=== PATIENT | male | born 1975 | race Caucasian/White ===

== ENCOUNTER 2017-12-27 07:48 | Inpatient (IN) | payer MEDICAID ==
[2017-12-27 08:40] LABS: ADD MAN DIFF? NO
[2017-12-27 08:43] LABS: ADD UMIC NO; BASOPHIL # 0.1 10^3/ul (0.0-0.1); BASOPHILS % 0.9 % (0.0-2.0); EOSINOPHILS # 0.1 10^3/ul (0.0-0.5); EOSINOPHILS % 0.9 % (0.0-7.0); HEMATOCRIT 46.2 % (42.0-52.0); HEMOGLOBIN 16.1 g/dl (14.0-18.0); LYMPHOCYTES # 1.5 10^3/ul (0.8-2.9); LYMPHOCYTES % 27.2 % (15.0-51.0); MEAN CORPUSCULAR HEMOGLOBIN 31.3 pg (29.0-33.0); MEAN CORPUSCULAR HGB CONC 34.8 g/dl (32.0-37.0); MEAN CORPUSCULAR VOLUME 89.7 fl (82.0-101.0); MEAN PLATELET VOLUME 12.9 fl (7.4-10.4); MONOCYTE # 0.4 10^3/ul (0.3-0.9); MONOCYTES % 7.5 % (0.0-11.0); NEUTROPHIL # 3.5 10^3/ul (1.6-7.5); NEUTROPHILS % 63.3 % (39.0-77.0); PLATELET COUNT 184 10^3/UL (140-415); RED BLOOD COUNT 5.15 10^6/ul (4.70-6.10); RED CELL DISTRIBUTION WIDTH 11.5 % (11.5-14.5); UR ASCORBIC ACID NEGATIVE (NEGATIVE); UR BILIRUBIN (Dip) NEGATIVE (NEGATIVE); UR BLOOD (Dip) NEGATIVE (NEGATIVE); UR CLARITY CLEAR (CLEAR); UR COLOR COLORLESS (YELLOW); UR GLUCOSE (Dip) 3+ mg/dL (NEGATIVE); UR KETONES (Dip) TRACE mg/dL (NEGATIVE); UR LEUKOCYTE ESTERASE (Dip) NEGATIVE Leu/ul (NEGATIVE); UR NITRITE (Dip) NEGATIVE (NEGATIVE); UR SPECIFIC GRAVITY (Dip) 1.027 (1.003-1.030); UR TOTAL PROTEIN (Dip) NEGATIVE (NEGATIVE); UR UROBILINOGEN (Dip) NEGATIVE (NEGATIVE)
[2017-12-27 08:43] LABS: WHITE BLOOD COUNT 5.6 10^3/ul (4.8-10.8)
[2017-12-27] MEDS: SOD CHLORIDE 0.9% 1,000 ML IV ×3 (08:48→14:27)
[2017-12-27 08:58] LABS: AADO2 Arterial 34.6 mmHg (7.0-24.0); Allen Test ACCEPTAB; Arterial Base Excess -3.7 mmol/L (-3.0-3); Arterial Blood Gas Oxygen Sat 93.4 mmHG (95.0-98.0); Arterial COHb 0.9 % (0.0-3.0); Arterial Fraction of Oxyhgb 92.2 % (93.0-99.0); Arterial MetHb 0.4 % (0.0-1.5); Arterial Total Hemglobin 15.9 g/dl (12.0-18.0); Arterial pCO2 37.2 mmhg (35-45); MODE ROOM AIR; Site Right Radial
[2017-12-27 09:08] LABS: ALANINE AMINOTRANSFERASE 70 IU/L (13-69); ALBUMIN 4.2 g/dl (3.3-4.9); ALKALINE PHOSPHATASE 209 IU/L (42-121); ANION GAP 15 (8-16); ASPARTATE AMINO TRANSFERASE 65 IU/L (15-46); BILIRUBIN,INDIRECT 0.6 mg/dl (0-1.1); BILIRUBIN,TOTAL 0.6 mg/dl (0.2-1.3); BLOOD UREA NITROGEN 16 mg/dl (7-20); CALCIUM 9.5 mg/dl (8.4-10.2); CARBON DIOXIDE 27 mmol/L (21-31); CHLORIDE 97 mmol/L (97-110); CREATININE 0.72 mg/dl (0.61-1.24); LIPASE 134 U/L (23-300); SODIUM 134 mmol/L (135-144)
[2017-12-27 09:18] LABS: GLUCOSE 802 mg/dl (70-220)
[2017-12-27 09:28] LABS: HEMOGLOBIN A1C 10.4 % (0-5.9)
[2017-12-27 09:29] LABS: AMPHETAMINE/METHAMPHETAMINE Negative (NEGATIVE); BARBITURATES Negative (NEGATIVE); BENZODIAZEPINES Negative (NEGATIVE); CANNABINOIDS Negative (NEGATIVE); COCAINE Negative (NEGATIVE); OPIATES Negative (NEGATIVE); TROPONIN-I < 0.012 ng/ml (0.00-0.12)
[2017-12-27] MEDS: INSULIN LISPRO 100 UNIT/ML VIAL SC (10:18)
[2017-12-27] MEDS ORDERED: ACETAMINOPHEN 325 MG TAB PO (12:00)
[2017-12-27] MEDS ORDERED: NACL 0.9% 3 ML SYG IV (12:00)
[2017-12-27] MEDS ORDERED: ONDANSETRON 4 MG INJ IV (12:00)
[2017-12-27] MEDS ORDERED: DOCUSATE SODIUM 100 MG CAP PO (12:00)
[2017-12-27] MEDS ORDERED: GLUCOSE GEL 15 GRAM TUBE BUCCAL (12:30)
[2017-12-27] MEDS ORDERED: GLUCOSE GEL 15 GRAM TUBE PO ×2 (12:30)
[2017-12-27] MEDS: INSULIN ASPART [NOVOLOG] 3 ML PEN SC ×4 (12:30→22:23)
[2017-12-27] MEDS ORDERED: GLUCAGON 1 MG INJ IM (12:30)
[2017-12-27] MEDS ORDERED: DEXTROSE 50% 50 ML SYRINGE IV ×2 (12:30)
[2017-12-27] MEDS: LISINOPRIL 5 MG TAB PO (12:31)
[2017-12-27 13:14] LABS: CHOL/HDL RATIO 5.3 RATIO; HDL CHOLESTEROL 32 mg/dl (27-67)
[2017-12-27 13:14] LABS: CHOLESTEROL 171 mg/dl (100-200)
[2017-12-27 13:23] LABS: TRIGLYCERIDES 590 mg/dl (0-149)
[2017-12-27] MEDS: HYPOGLYCEMIA PROTOCOL when Glucose is <70 mg/dL or symptomatic <90 mg/dL. XX (15:25)
[2017-12-27] MEDS: ATORVASTATIN 20 MG TAB PO (22:03)
[2017-12-27] MEDS: INSULIN GLARGINE [LANtus] 3 ML PEN SC (22:23)
[2017-12-28] MEDS: SOD CHLORIDE 0.9% 1,000 ML IV ×3 (03:45→17:13)
[2017-12-28] MEDS: INSULIN ASPART [NOVOLOG] 3 ML PEN SC ×7 (07:58→20:57)
[2017-12-28 08:33] LABS: ADD MAN DIFF? NO
[2017-12-28 08:37] LABS: BASOPHILS % 0.7 % (0.0-2.0); EOSINOPHILS # 0.1 10^3/ul (0.0-0.5); EOSINOPHILS % 1.4 % (0.0-7.0); HEMATOCRIT 44.8 % (42.0-52.0); HEMOGLOBIN 15.5 g/dl (14.0-18.0); LYMPHOCYTES # 1.7 10^3/ul (0.8-2.9); MEAN CORPUSCULAR HEMOGLOBIN 31.4 pg (29.0-33.0); MEAN CORPUSCULAR HGB CONC 34.6 g/dl (32.0-37.0); MEAN CORPUSCULAR VOLUME 90.7 fl (82.0-101.0); MEAN PLATELET VOLUME 12.8 fl (7.4-10.4); MONOCYTE # 0.4 10^3/ul (0.3-0.9); MONOCYTES % 6.8 % (0.0-11.0); NEUTROPHIL # 3.4 10^3/ul (1.6-7.5); NEUTROPHILS % 60.9 % (39.0-77.0); PLATELET COUNT 188 10^3/UL (140-415); RED BLOOD COUNT 4.94 10^6/ul (4.70-6.10); RED CELL DISTRIBUTION WIDTH 12.1 % (11.5-14.5)
[2017-12-28 08:37] LABS: WHITE BLOOD COUNT 5.6 10^3/ul (4.8-10.8)
[2017-12-28] MEDS: LISINOPRIL 5 MG TAB PO (08:45)
[2017-12-28] MEDS: ENOXAPARIN 40 MG/0.4 ML SYG SC (08:45)
[2017-12-28 09:05] LABS: ANION GAP 15 (8-16); BLOOD UREA NITROGEN 11 mg/dl (7-20); CALCIUM 8.7 mg/dl (8.4-10.2); CARBON DIOXIDE 24 mmol/L (21-31); CHLORIDE 106 mmol/L (97-110); GLUCOSE 278 mg/dl (70-220); MAGNESIUM 1.9 mg/dl (1.7-2.5); PHOSPHORUS 2.6 mg/dl (2.5-4.9); POTASSIUM 4.1 mmol/L (3.5-5.1); SODIUM 141 mmol/L (135-144)
[2017-12-28] MEDS: ATORVASTATIN 20 MG TAB PO (20:53)
[2017-12-28] MEDS: INSULIN GLARGINE [LANtus] 3 ML PEN SC (20:57)
[2017-12-29 07:22] LABS: ADD MAN DIFF? NO
[2017-12-29 07:27] LABS: BASOPHILS % 0.7 % (0.0-2.0); EOSINOPHILS # 0.1 10^3/ul (0.0-0.5); EOSINOPHILS % 1.8 % (0.0-7.0); HEMATOCRIT 46.1 % (42.0-52.0); HEMOGLOBIN 15.9 g/dl (14.0-18.0); LYMPHOCYTES # 1.8 10^3/ul (0.8-2.9); LYMPHOCYTES % 32.7 % (15.0-51.0); MEAN CORPUSCULAR HEMOGLOBIN 31.5 pg (29.0-33.0); MEAN CORPUSCULAR HGB CONC 34.5 g/dl (32.0-37.0); MEAN CORPUSCULAR VOLUME 91.3 fl (82.0-101.0); MEAN PLATELET VOLUME 12.7 fl (7.4-10.4); MONOCYTE # 0.5 10^3/ul (0.3-0.9); MONOCYTES % 9.7 % (0.0-11.0); NEUTROPHILS % 54.7 % (39.0-77.0); PLATELET COUNT 184 10^3/UL (140-415); RED BLOOD COUNT 5.05 10^6/ul (4.70-6.10); RED CELL DISTRIBUTION WIDTH 11.8 % (11.5-14.5)
[2017-12-29 07:27] LABS: WHITE BLOOD COUNT 5.5 10^3/ul (4.8-10.8)
[2017-12-29] MEDS: SOD CHLORIDE 0.9% 1,000 ML IV ×2 (07:39→07:54)
[2017-12-29] MEDS: INSULIN ASPART [NOVOLOG] 3 ML PEN SC ×7 (07:45→21:01)
[2017-12-29 07:58] LABS: ANION GAP 13 (8-16); BLOOD UREA NITROGEN 12 mg/dl (7-20); CALCIUM 8.7 mg/dl (8.4-10.2); CARBON DIOXIDE 27 mmol/L (21-31); CHLORIDE 102 mmol/L (97-110); CREATININE 0.67 mg/dl (0.61-1.24); GLUCOSE 259 mg/dl (70-220); POTASSIUM 4.1 mmol/L (3.5-5.1); SODIUM 138 mmol/L (135-144)
[2017-12-29] MEDS: LISINOPRIL 5 MG TAB PO (08:51)
[2017-12-29] MEDS: ENOXAPARIN 40 MG/0.4 ML SYG SC (08:53)
[2017-12-29 16:24] LABS: HEPATITIS C VIRAL ANTIBODY NEGATIVE (NEGATIVE)
[2017-12-29] MEDS: metFORMIN 500 MG TAB PO (17:04)
[2017-12-29] MEDS: ATORVASTATIN 10 MG TAB PO (20:47)
[2017-12-29] MEDS: FISH OIL 1,000 MG CAP PO (20:48)
[2017-12-29] MEDS: INSULIN GLARGINE [LANtus] 3 ML PEN SC (20:57)
[2017-12-30] MEDS: metFORMIN 500 MG TAB PO ×2 (08:12→18:03)
[2017-12-30] MEDS: FISH OIL 1,000 MG CAP PO ×2 (08:12→20:40)
[2017-12-30] MEDS: LISINOPRIL 5 MG TAB PO (08:12)
[2017-12-30] MEDS: ENOXAPARIN 40 MG/0.4 ML SYG SC (08:16)
[2017-12-30] MEDS: INSULIN ASPART [NOVOLOG] 3 ML PEN SC ×7 (08:16→20:56)
[2017-12-30] MEDS: SOD CHLORIDE 0.9% 1,000 ML IV (18:03)
[2017-12-30] MEDS: ATORVASTATIN 10 MG TAB PO (20:41)
[2017-12-30] MEDS: INSULIN GLARGINE [LANtus] 3 ML PEN SC (20:49)
[2017-12-31] MEDS: metFORMIN 500 MG TAB PO (07:53)
[2017-12-31] MEDS: INSULIN ASPART [NOVOLOG] 3 ML PEN SC ×4 (07:58→12:59)
[2017-12-31] MEDS: FISH OIL 1,000 MG CAP PO (10:00)
[2017-12-31] MEDS: LISINOPRIL 5 MG TAB PO (10:01)
[2017-12-31] MEDS: ENOXAPARIN 40 MG/0.4 ML SYG SC (10:03)
== END 2017-12-31 14:10 | disposition home or self-care (01) | DRG 639 ==
LOC: MS1 12-31 09:41 → FTE 07:48 → TEL 10:52
DX: E11.65 Type 2 diabetes mellitus with hyperglycemia (principal); I10 Essential (primary) hypertension; E78.5 Hyperlipidemia, unspecified; E11.319 Type 2 diabetes mellitus with unspecified diabetic retinopathy without macular edema; E66.9 Obesity, unspecified; Z68.30 Body mass index [BMI] 30.0-30.9, adult; R06.83 Snoring; Z87.891 Personal history of nicotine dependence
CPT/HCPCS: 36415; 36600; 71045; 80048; 80053; 80061; 80307; 81003; 82803; 82962; 83036; 83690; 83735; 84100; 84443; 84484; 85025; 86803; 93005; 96372; 99285-25

== ENCOUNTER → 2018-01-18 | Outpatient (CLI) | payer MEDICAID | END | disposition home or self-care (01) | LOC: DIB 10:00 | DX: Z02.9 Encounter for administrative examinations, unspecified (principal) ==